=== PATIENT | male | born 1975 | race Two or more races ===

== ENCOUNTER 2022-01-16 19:35 | Emergency (ER) | payer OTHER ==
[~2022-01-16] VITALS: Ht 172.7 cm; Wt 72.6 kg
[2022-01-16] MEDS ORDERED: LEVE500T9 PO (20:49)
--- NOTE | 2022-01-16 20:49 | NUR ---
After being triaged patient was placed back in waiting room due to no beds available in the ER.
--- NOTE | 2022-01-16 21:49 | NUR ---
Placed in room 4b.
--- NOTE | 2022-01-16 21:54 | NUR ---
Patient walked into ER c/o N/V x4 today. Patient also c/o WATT and abdominal pain
[2022-01-16 22:45] LABS: HEMATOCRIT 35.3 % (36.7-47.1); MEAN CORPUSCULAR HEMOGLOBIN 21.6 uug (23.8-33.4); PLATELET COUNT (AUTO) 362 K/uL (152-348)
[2022-01-16 22:46] LABS: CREATININE 0.7 mg/dL (0.6-1.3); POTASSIUM 3.2 mmol/L (3.5-5.1)
[2022-01-16 22:58] LABS: BILIRUBIN,DIRECT 0.1 mg/dL (0.0-0.2); BILIRUBIN,TOTAL 0.3 mg/dL (0.2-1.0); TOTAL PROTEIN, SERUM 6.4 g/dL (6.4-8.2)
[2022-01-16 23:17] LABS: ETHANOL < 3 MG/DL (0-0)
[2022-01-17] MEDS ORDERED: POTASSIUM CHLORIDE 20 MEQ TAB.PRT.SR PO ONE
[2022-01-17] MEDS ORDERED: POTASSIUM CHLORIDE 20 MEQ TAB.PRT.SR ONE (00:09)
[2022-01-17] MEDS ORDERED: KETOROLAC TROMETHAMINE 60 MG INJ IM ONE ×2 (00:09)
[2022-01-17] MEDS ORDERED: ONDA4TAB5 PO (00:14)
--- NOTE | 2022-01-17 00:20 | NUR ---
Patient discharged to home in stable condition. Written and verbal after care instructions given. Patient verbalizes understanding of instructions. Stressed follow up or return to ER for worsening s/s. Patient is A/Ox4, no CP, no distress noted.
[2022-01-17 00:39] VITALS: BP 124/85
== END 2022-01-17 00:20 | disposition home or self-care (01) ==
LOC: ER 19:43
DX: R51.9 Headache, unspecified (principal); R11.2 Nausea with vomiting, unspecified; E78.5 Hyperlipidemia, unspecified; E87.6 Hypokalemia; D64.9 Anemia, unspecified; D75.839 Thrombocytosis, unspecified; Z59.00 Homelessness unspecified; Z86.73 Personal history of transient ischemic attack (TIA), and cerebral infarction without residual deficits; F10.10 Alcohol abuse, uncomplicated; Z79.899 Other long term (current) drug therapy; Z86.39 Personal history of other endocrine, nutritional and metabolic disease
CPT/HCPCS: 70450; 83690; 85025; G0480; J1885